=== PATIENT | male | born 1950 | race Caucasian/White ===

== ENCOUNTER 2017-08-09 01:10 | Emergency (ER) | payer MEDICARE, MEDICAID ==
[2017-08-09 01:16] VITALS: TEMP 97.6; O2SAT 100
[2017-08-09] MEDS ORDERED: Sodium Chloride 0.9% 1,000 ML IV ONE (01:24)
--- NOTE | 2017-08-09 01:24 | C.PDOC ---
History Of Present Illness Patient presents to the ER with a complaint of sudden onset of a sharp, stabbing , right flank pain that radiates to the back. Patient has a Hx of kidney stones. Denies dysuria, fever, chills, nausea, or vomiting. Time Seen by Provider: 08/09/17 01:23 Chief Complaint (Nursing): Male Genitourinary History Per: Patient History/Exam Limitations: no limitations Onset/Duration Of Symptoms: Hrs, Sudden Onset Current Symptoms Are (Timing): Still Present Severity: Moderate Pain Scale Rating Of: 6 Quality Of Discomfort: Sharp, Stabbing Associated Symptoms: denies: Fever, Chills, Nausea, Vomiting Alleviating Factors: None Recent travel outside of the [place]: No Past Medical History Reviewed: Historical Data, Nursing Documentation, Vital Signs Vital Signs: Last Vital Signs Temp 97.6 F 08/09/17 03:58 Pulse 58 L 08/09/17 03:58 Resp 16 08/09/17 03:58 BP 126/70 08/09/17 03:58 Pulse Ox 100 08/09/17 03:58 - Medical History PMH: Kidney Stones Family History: States: No Known Family Hx - Social History Hx Alcohol Use: No Hx Substance Use: No - Immunization History Hx Tetanus Toxoid Vaccination: No Hx Influenza Vaccination: Yes Hx Pneumococcal Vaccination: No Review Of Systems Constitutional: Negative for: Fever, Chills Gastrointestinal: Negative for: Nausea, Vomiting Genitourinary: Negative for: Dysuria Musculoskeletal: Positive for: Back Pain Physical Exam - Physical Exam Appears: Non-toxic Skin: Warm, Dry Head: Normacephalic Oral Mucosa: Moist Chest: Symmetrical, No Tenderness Cardiovascular: Rhythm Regular Respiratory: No Rales, No Rhonchi, No Wheezing Gastrointestinal/Abdominal: Soft, No Tenderness Back: Other (Right flank tenderness) Neurological/Psych: Oriented x3 ED Course And Treatment - Laboratory Results Result Diagrams: 08/09/17 01:38 08/09/17 01:38 O2 Sat by Pulse Oximetry: 100 (Room air) Pulse Ox Interpretation: Normal Progress Note: Blood work and urinalysis ordered. Morphine, toradol, zofran, and IV fluids administered. Reevaluation Time: 05:09 Reassessment Condition: Improved Disposition Counseled Patient/Family Regarding: Studies Performed, Diagnosis, Need For Followup - Disposition Referrals: Danyelle Avendano [Staff Provider] - Disposition: HOME/ ROUTINE Disposition Time: 01:23 Condition: FAIR Prescriptions: Pantoprazole Sodium [Protonix] 40 mg PO DAILY #15 ect traMADol [Ultram] 50 mg PO TID PRN #15 tab PRN Reason: Pain, Severe (8-10) Instructions: Gallstones (DC), Renal Colic (DC) Forms: Emotive (Tongan) - Clinical Impression Clinical Impression: Gall stones, Enlarged prostate, Renal colic - Scribe Statement The provider has reviewed the documentation as recorded by the Scribalejandra Santizo All medical record entries made by the Santanaibe were at my direction and personally dictated by me. I have reviewed the chart and agree that the record accurately reflects my personal performance of the history, physical exam, medical decision making, and the department course for this patient. I have also personally directed, reviewed, and agree with the discharge instructions and disposition.
[2017-08-09] MEDS ORDERED: Morphine 4 MG/ML VIAL ONE (01:33)
[2017-08-09 01:42] LABS: BASO # 0.1 K/uL (0.0-0.2); BASO % 0.7 % (0.0-2.0); EOS # 0.2 K/uL (0.0-0.7); EOS % 1.6 % (0.0-4.0); HEMOGLOBIN 12.6 g/dL (12.0-18.0); LYMPH # 5.1 K/uL (1.0-4.3); LYMPH % 51.8 % (20.0-40.0); MEAN CELL VOLUME 87.6 fL (80.0-94.0); MEAN CORPUSCULAR HEMOGLOBIN 30.2 pg (27.0-31.0); MEAN CORPUSCULAR HGB CONC 34.5 g/dL (33.0-37.0); MEAN PLATELET VOLUME 7.6 fL (7.2-11.7); MONO # 1.1 K/uL (0.0-0.8); MONO % 10.9 % (0.0-10.0); NEUT # 3.4 K/uL (1.8-7.0); RBC 4.18 Mil/uL (4.40-5.90); WHITE BLOOD COUNT 9.8 K/uL (4.8-10.8)
[2017-08-09 01:57] LABS: INR 1.2; PROTHROMBIN TIME 12.6 SECONDS (9.7-12.2)
[2017-08-09 02:10] LABS: URINE AMORPHOUS SEDIMENT FEW /ul (<OCC); URINE BACTERIA RARE (<OCC); URINE BILIRUBIN NEGATIVE (NEGATIVE); URINE BLOOD NEGATIVE (NEGATIVE); URINE CLARITY Hazy (Clear); URINE COLOR Yellow (YELLOW); URINE GLUCOSE (UA) NORMAL (Normal); URINE LEUKOCYTE ESTERASE NEG Leu/uL (Negative); URINE PROTEIN NEGATIVE (NEGATIVE); URINE UROBILINOGEN NORMAL mg/dL (0.2-1.0)
[2017-08-09 02:20] LABS: ALB/GLOB RATIO 1.2 (1.0-2.1); ALBUMIN 4.4 g/dL (3.5-5.0); ALT/SGPT 16 U/L (21-72); AST/SGOT 29 U/L (17-59); BLOOD UREA NITROGEN 23 mg/dL (9-20); CALCIUM 9.9 mg/dl (8.6-10.4); GFR AFRICAN-AMERICAN > 60; GFR NON-AFRICAN AMERICAN > 60; LIPASE 42 U/L (23-300)
[2017-08-09 03:59] VITALS: RESP 16
[2017-08-09 05:26] VITALS: BP 153/80; PULSE 56
--- NOTE | 2017-08-09 09:14 | CT ---
PROCEDURE: CT Abdomen and Pelvis without intravenous contrast HISTORY: Right flank pain. COMPARISON: None. TECHNIQUE: Multiple contiguous axial images were performed through the abdomen and pelvis without the use of intravenous contrast. Subsequently, sagittal and coronal reformatted images were obtained. Radiation dose: Total exam DLP = 642 mGy-cm. This CT exam was performed using one or more of the following dose reduction techniques: Automated exposure control, adjustment of the mA and/or kV according to patient size, and/or use of iterative reconstruction technique. FINDINGS: LOWER THORAX: Mild dependent atelectatic changes in the lungs. LIVER: Unremarkable. No gross lesion or ductal dilatation. GALLBLADDER AND BILE DUCTS: Cholelithiasis in a distended gallbladder. PANCREAS: Unremarkable. No gross lesion or ductal dilatation. SPLEEN: Unremarkable. ADRENALS: Mild nodularity of the adrenal glands. KIDNEYS AND URETERS: 6.9 centimeter low-attenuation lesion in the right kidney demonstrating a Hounsfield unit attenuation of 7 suggestive for a cyst. 3 and 2 millimeter nonobstructive calculi/calcifications in the left kidney. VASCULATURE: Unremarkable. No aortic aneurysm. BOWEL: Unremarkable. No obstruction. No gross mural thickening. Scattered areas of underdistention of the proximal transverse colon, distal descending colon, and distal sigmoid colon. APPENDIX: Not well visualized. PERITONEUM: Unremarkable. No free fluid. No free air. LYMPH NODES: Unremarkable. No enlarged lymph nodes. BLADDER: Unremarkable. REPRODUCTIVE: Enlarged prostate measuring 5.7 centimeters in diameter. BONES: Degenerative changes in the osseous structures. Somewhat ill-defined sclerotic foci seen in the right iliac bone measuring 2.2 centimeters on series 3, image 124. This is of uncertain clinical etiology. Correlation with bone scan may be helpful. OTHER FINDINGS: Mild atherosclerotic calcification of the aorta and branch vessels. IMPRESSION: 1. Cholelithiasis in a distended gallbladder. 2. Somewhat ill-defined sclerotic foci seen in the right iliac bone measuring 2.2 centimeters on series 3, image 124. This is of uncertain clinical etiology. Correlation with bone scan may be helpful. 3. Enlarged prostate. 4. 6.9 centimeter low-attenuation lesion in the right kidney demonstrating a Hounsfield unit attenuation of 7 suggestive for a cyst. 3 and 2 millimeter nonobstructive calculi/calcifications in the left kidney. 5. Scattered areas of underdistention of the proximal transverse colon, distal descending colon, and distal sigmoid colon. Correlation with colonoscopy may be helpful. Additional findings as above. These findings were preliminarily reported at 4:05 a.m. on 08/09/[address] Angel Singh from [facility].
== END 2017-08-09 05:56 | disposition home or self-care (01) ==
LOC: C.ER 01:10
DX: K80.80 Other cholelithiasis without obstruction (principal); N40.0 Benign prostatic hyperplasia without lower urinary tract symptoms; N23 Unspecified renal colic
CPT/HCPCS: 74176; 80053; 81001; 83690; 85025; 85610; 85730; 96361; 96374; 96375; 99284; J1885; J2270; J2405; J7030